=== PATIENT | male | born 1995 | race Caucasian/White ===

== ENCOUNTER 2021-04-02 14:59 | Emergency (ER) | payer OTHER ==
[2021-04-02 15:27] VITALS: TEMP 98.1; BMI 16.1
[2021-04-02 16:27] LABS: BASO % 0.4 % (0-2.0); EOS % 1.9 % (0-4.5); HEMATOCRIT 40.8 % (35.4-49); HEMOGLOBIN 13.8 GM/dL (11.7-16.9); LYMPH % 13.8 % (8-40); MCH 31.7 pg (25.7-33.7); MCHC 33.9 g/dl (32.0-35.9); MEAN CELL VOLUME 93.4 fl (80-96); MEAN PLT VOLUME 9.4 fl (7.5-11.1); MONO % 4.7 % (3.8-10.2); NEUT % 79.2 % (42.8-82.8); PLATELET COUNT 217 10^3/uL (134-434); RBC 4.37 M/mm3 (4.00-5.60); RDW 13.7 % (11.9-15.9); WHITE BLOOD COUNT 9.8 K/mm3 (4.0-10.0)
[2021-04-02 16:35] LABS: INR 1.15 (0.83-1.09); PROTHROMBIN TIME (PATIENT) 13.9 SEC (9.7-13.0)
[2021-04-02 16:37] LABS: ACTIVATED PTT 39.9 SECONDS (25.2-36.5)
[2021-04-02] MEDS ORDERED: DIPHTH,PERTUSS(ACELL),TET 0.5 ML DISP.SYRIN IM ONE ×2 (16:46→18:20)
[2021-04-02] MEDS ORDERED: SODIUM CHLORIDE 1,000 ML IV STA (16:46)
[2021-04-02] MEDS ORDERED: morphine CARPU-JECT 2 MG/1 ML DISP.SYRIN IVPUSH ONE (16:46)
[2021-04-02 16:54] LABS: CHLORIDE 105 mmol/L (98-107); SODIUM 140 mmol/L (136-145)
[2021-04-02 16:58] LABS: ALBUMIN 3.9 g/dl (3.4-5.0); ANION GAP 5 MMOL/L (8-16); BLOOD UREA NITROGEN 15.1 mg/dL (7-18); CO2 30 mmol/L (21-32); GLUCOSE,RANDOM 77 mg/dL (74-106); LIPASE 98 U/L (73-393)
[2021-04-02 17:01] LABS: CREATININE 0.9 mg/dL (0.55-1.3); SGOT/AST 48 U/L (15-37); SGPT/ALT 53 U/L (13-61)
[2021-04-02 17:02] LABS: BILIRUBIN,TOTAL 0.5 mg/dL (0.2-1)
[2021-04-02 17:04] LABS: ALK PHOS 66 U/L (45-117)
[2021-04-02 20:12] VITALS: BP 130/62; PULSE 80
== END 2021-04-02 20:13 | disposition home or self-care (01) ==
LOC: JER 14:59
PROC: 3E0234Z Introduction of Serum, Toxoid and Vaccine into Muscle, Percutaneous Approach (ICD-10-PCS; principal; 2021-04-02)
PROC: 3E0337Z Introduction of Electrolytic and Water Balance Substance into Peripheral Vein, Percutaneous Approach (ICD-10-PCS; 2021-04-02)
DX: M25.572 Pain in left ankle and joints of left foot (principal); S30.811A Abrasion of abdominal wall, initial encounter; S40.811A Abrasion of right upper arm, initial encounter; S40.812A Abrasion of left upper arm, initial encounter
CPT/HCPCS: 36415; 70450-TC; 71045-TC-FY; 71260-TC; 72125-TC; 72170-TC-FY; 73610-TC-LT-FY; 73630-TC-LT; 73700-TC-RT; 74177-TC; 80053; 82550; 82553; 83690; 84484; 85025; 85610; 85730; 86850; 86900; 86901; 90471; 90715; 93005; 93010; 99285-25; Q9967

== ENCOUNTER 2022-05-04 21:52 | Emergency (ER) | payer OTHER ==
[2022-05-04 22:06] VITALS: BP 137/79; PULSE 67; RESP 18; TEMP 98; BMI 22.8
== END 2022-05-04 22:10 | disposition home or self-care (01) ==
LOC: JERFT 21:52 → JER 21:52 → JERFT 22:10
DX: L25.5 Unspecified contact dermatitis due to plants, except food (principal)
CPT/HCPCS: 99283-25

== ENCOUNTER 2022-10-10 19:01 | Emergency (ER) | payer OTHER ==
[2022-10-10 19:09] VITALS: BP 124/76; PULSE 83; RESP 17; TEMP 98.3; BMI 16.2
[2022-10-10] MEDS ORDERED: AMOX TR/POT CLAV 500MG/125MG TABLETS (FP) PO ONE (19:58)
[2022-10-10] MEDS ORDERED: AMOX TR/POT CLAV 500MG/125MG TABLETS (FP) ONE (20:02)
[2022-10-10] MEDS ORDERED: IBUPROFEN 600 MG TABLET (FP) PO ONE ×2 (20:34→20:36)
== END 2022-10-10 20:46 | disposition home or self-care (01) ==
LOC: JERFT 19:01
DX: S51.851A Open bite of right forearm, initial encounter (principal); S51.852A Open bite of left forearm, initial encounter; W54.0XXA Bitten by dog, initial encounter
CPT/HCPCS: 99283-25

== ENCOUNTER 2023-05-14 20:55 | Emergency (ER) | payer OTHER ==
[2023-05-14 21:04] VITALS: BP 111/63; PULSE 69; RESP 18; TEMP 97.8; BMI 17.9
[2023-05-14] MEDS ORDERED: LORATADINE 10 MG TABLET PO ONE (21:25)
[2023-05-14] MEDS ORDERED: LORATADINE 10 MG TABLET ONE (21:27)
== END 2023-05-14 21:46 | disposition home or self-care (01) ==
LOC: JERFT 20:55
DX: S30.861A Insect bite (nonvenomous) of abdominal wall, initial encounter (principal); L29.9 Pruritus, unspecified; L53.9 Erythematous condition, unspecified; W57.XXXA Bitten or stung by nonvenomous insect and other nonvenomous arthropods, initial encounter
CPT/HCPCS: 99283-25